=== PATIENT | female | born 1930 | race Caucasian/White ===

== ENCOUNTER 2021-01-11 13:57 | Emergency (ER) | payer BC ==
[~2021-01-11] VITALS: Ht 152.4 cm; Wt 77.1 kg
[2021-01-11 13:57] VITALS: BP_SYST 131
[2021-01-11] MEDS ORDERED: NS 500 ML IV SCH ×2 (14:15→14:30)
[2021-01-11] MEDS ORDERED: VANCOMYCIN HCL 1 MG in D5W 250 ML IV ONE (14:30)
[2021-01-11] MEDS ORDERED: AMPICILLIN SODIUM/SULBACTAM NA 3 GM in NS 100 ML IV ONE (14:30)
[2021-01-11] MEDS ORDERED: AMPICILLIN SODIUM/SULBACTAM NA 3 GM VIAL ONE (14:45)
[2021-01-11 14:50] LABS: BASOPHILS # (AUTO) 0.1 K/uL (0.0-0.2); BASOPHILS % (AUTO) 0.8 % (0.0-2.0); EOSINOPHILS # (AUTO) 0.1 K/uL (0.0-0.4); EOSINOPHILS % (AUTO) 1.4 % (0.0-4.0); HEMOGLOBIN 9.6 g/dL (12.0-16.0); LYMPHOCYTES # (AUTO) 1.8 K/uL (1.0-5.5); LYMPHOCYTES % (AUTO) 28.2 % (20.5-51.5); MEAN CORPUSCULAR HEMOGLOBIN 31 pg (27-31); MEAN CORPUSCULAR HGB CONC 33 % (32-36); MEAN CORPUSCULAR VOLUME 93 fL (79.0-98.0); MONOCYTES # (AUTO) 0.5 K/uL (0.0-1.0); MONOCYTES % (AUTO) 8.6 % (1.7-9.3); NEUTROPHILS # (AUTO) 3.9 K/uL (1.8-7.7); PLATELET COUNT (AUTO) 378 K/uL (130-430); RED BLOOD CELL COUNT(AUTO) 3.12 MIL/uL (4.2-6.2); RED CELL DISTRIBUTION WIDTH 14.9 % (9.0-15.0); WHITE BLOOD COUNT (AUTO) 6.4 K/uL (4.8-10.8)
[2021-01-11 15:02] LABS: ANION GAP 8 (5-15); CALCIUM 8.6 mg/dL (8.4-11.0); CHLORIDE 99 mmol/L (98-107); CREATININE 1.09 mg/dL (0.55-1.30); GLUCOSE 105 mg/dL (70-99); POTASSIUM 4.2 mmol/L (3.5-5.1); SODIUM SERUM 133 mmol/L (136-145); UREA NITROGEN, BLOOD 10 mg/dL (8-21)
[2021-01-11 15:03] LABS: PROTHROMBIN TIME 10.5 SECS (9.5-12.5)
[2021-01-11 15:08] LABS: ALANINE AMINOTRANSFERASE 23 U/L (12-78); ALBUMIN 2.5 g/dL (3.4-4.8); ASPARTATE AMINOTRANSFERASE 21 U/L (10-37); TOTAL BILIRUBIN 0.3 mg/dL (0.0-1.0)
[2021-01-11] MEDS ORDERED: BACITRACIN 1 GM OINT TP ONE (15:33)
[2021-01-11] MEDS ORDERED: SULF1TAB48 PO (16:02)
[2021-01-11] MEDS ORDERED: DIPH-TET-PERTUS Vaccine 0.5 ML VIAL (ADACEL) I.M. ONE (16:15)
[2021-01-11] MEDS ORDERED: VANCOMYCIN HCL 1000 MG/VIAL IV ONE (16:39)
[2021-01-11 19:28] VITALS: BP_SYST 123
== END 2021-01-11 19:32 | disposition home or self-care (01) ==
LOC: SED 13:57
DX: S20.221A Contusion of right back wall of thorax, initial encounter (principal); S09.90XA Unspecified injury of head, initial encounter; L03.115 Cellulitis of right lower limb; I10 Essential (primary) hypertension; F41.9 Anxiety disorder, unspecified; Z86.2 Personal history of diseases of the blood and blood-forming organs and certain disorders involving the immune mechanism; Z88.6 Allergy status to analgesic agent; W01.0XXA Fall on same level from slipping, tripping and stumbling without subsequent striking against object, initial encounter; Y93.89 Activity, other specified; Y92.89 Other specified places as the place of occurrence of the external cause; Y99.8 Other external cause status
CPT/HCPCS: 36415; 70450; 71045; 72125; 72128; 73590; 76376; 80053; 83605; 85025; 85610; 85730; 87040; 87070; 90471; 90715; 93971; 96365; 96366; 96368; 99285; J0295; J3370